=== PATIENT | male | born 1960 | race Two or more races ===

== ENCOUNTER 2019-12-31 10:42 | Emergency (ER) | payer MEDICAID, OTHER ==
[~2019-12-31] VITALS: Ht 177.8 cm; Wt 117.9 kg
[~2019-12-31 10:42] MED LIST: COREG25 MG ORAL; COZAAR50 MG ORAL; ELIQUIS5 MG ORAL; LEVEMIR FL100 UNIT/1 SUBQ; NOVOLOG100 UNITS1 SUBQ; PACERONE200 MG ORAL; SPIRONOLACTONE25 MG ORAL
[2019-12-31 10:53] VITALS: BP 180/100
--- NOTE | 2019-12-31 10:53 | NUR ---
ED Nurse Note: pt walked in to ed for bp medication refill.
--- NOTE | 2019-12-31 11:02 | Emergency Room Report ---
History of Present Illness General Chief Complaint: Medication Refill Source: Patient Present Illness HPI This patient is requesting a medication refill of all his regular medications. He states that he has been unable to get into see a physician because of the COVID-19 pandemic. He is requesting a refill on all of his medications. He does plan on following up with a primary care physician and distiller as soon as possible. He has no other complaints. 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 Patient History Past Medical History: see triage record, DM, HTN Social History: Denies: smoking, alcohol use, drug use Reviewed Nursing Documentation: PMH: Agreed; PSxH: Agreed Nursing Documentation-PMH Past Medical History: No History, Except For Hx Cardiac Problems: No Hx Hypertension: Yes Hx Diabetes: Yes Hx Cancer: No Hx Gastrointestinal Problems: No Hx Neurological Problems: No Review of Systems All Other Systems: negative except mentioned in HPI Physical Exam Vital Signs Date Time Temp Pulse Resp B/P (MAP) Pulse Ox O2 Delivery O2 Flow Rate FiO2 12/31/19 10:48 98.4 100 20 174/107 (129) 97 Room Air Sp02 EP Interpretation: reviewed, normal General Appearance: no apparent distress, alert, GCS 15, non-toxic Head: normocephalic, atraumatic ENT: hearing grossly normal, no angioedema, normal voice Respiratory: no respiratory distress, no retraction, no accessory muscle use, speaking full sentences Cardiovascular #1: regular rate, rhythm, no edema Rectal: deferred Musculoskeletal: normal range of motion, gait/station normal, non-tender Neurologic: alert, oriented x3, responsive, speech normal, grossly normal Psychiatric: judgement/insight normal, memory normal, mood/affect normal, no suicidal/homicidal ideation Skin: no rash, normal color Medical Decision Making Diagnostic Impression: Primary Impression: Encounter for medication refill ER Course This patient is requesting medication refill. I will refill 1 month of all of his regular medications. He was educated on the dangers of obtaining his regular prescriptions from an emergency department. He was educated that he needed to follow-up closely with his primary care physician and given that these medications are cardiac medications that he will need to also be followed by distiller. He states that he normally he is in he plans to do this as soon as possible. He indicated understanding. His medications were refilled. Last Vital Signs Date Time Temp Pulse Resp B/P (MAP) Pulse Ox O2 Delivery O2 Flow Rate FiO2 12/31/19 10:48 98.4 100 20 174/107 (129) 97 Room Air Disposition: HOME, SELF-CARE Condition: Improved Patient Instructions: Medicine Refill at the Emergency Department Regine Miranda DO Dec 31, 2019 11:02
[2019-12-31] MEDS ORDERED: SPIRONOLACTONE25 MG ORAL (11:04)
[2019-12-31] MEDS ORDERED: PACERONE200 MG ORAL (11:04)
[2019-12-31] MEDS ORDERED: COZAAR50 MG ORAL (11:04)
[2019-12-31] MEDS ORDERED: COREG25 MG ORAL (11:04)
--- NOTE | 2019-12-31 11:08 | NUR ---
ER DISCHARGE NOTE: Patient is cleared to be discharged per ERMD, pt is aox4, on room air, with stable vital signs. pt was given dc and prescription instructions, pt was able to verbalize understanding, pt id band removed without complications. pt is able to ambulate with steady gait. pt took all belongings.
[2019-12-31 11:09] VITALS: BP 176/106
== END 2019-12-31 11:37 | disposition home or self-care (01) ==
LOC: EMR 11:05
DX: Z76.0 Encounter for issue of repeat prescription (principal); E11.9 Type 2 diabetes mellitus without complications; I10 Essential (primary) hypertension
CPT/HCPCS: 99282